=== PATIENT | female | born 1955 | race Caucasian/White ===

== ENCOUNTER 2022-05-25 12:54 | Emergency (ER) | payer MEDICARE, OTHER, SELFPAY ==
[2022-05-25 13:00] VITALS: BP 118/76; PULSE 82; RESP 18; TEMP 36.4; O2SAT 96
--- NOTE | 2022-05-25 13:06 | W.ED.GENADLT ---
HPI - General Adult General: Chief complaint: Nausea/Vomiting/Diarrhea Stated complaint: n/v Time Seen by Provider: 05/25/22 13:04 History of Present Illness: Patient is a 66-year-old female with no significant past medical who presents emergency room with 1 day of nausea vomiting and lower abdominal pain. Patient has been admitted since the onset of pain yesterday afternoon, patient has not been able to tolerate anything p.o. Patient has had multiple episodes of vomiting without associated diarrhea melena medic easier. Patient has no complaints or history of renal colic. Patient has a history of prior cholecystectomy does not know whether her appendix is still present. Patient denies any new vaginal discharge or heavy vaginal bleeding. Patient reports chills but denies any fever cough, runny nose sore throat chest pain or shortness breath. Onset:yesterday Duration:1 day Location:home Severity:moderate Associated symptoms: Reports vomiting; Deny chest pain, dyspnea, rash or palpitations Review of Systems Const: Denies: fever(s) or chills Eyes: Denies: change in vision ENMT: Denies: mouth pain Card: Denies: chest pain or palpitations Resp: Denies: dyspnea or non-productive cough GI: Reports: abdominal pain (+lower abd pain) and vomiting; Denies: diarrhea : Denies: dysuria Musc: Denies: extremity pain Skin/Breast: Denies: rash or new lesions Neuro: Denies: weakness in extremities Psych: Reports: other (Normal mood) Luis Armando/Lymph: Denies: easy bruising PFSH ED PFSH: Surgical History Hx of cholecystectomy Social History Smoking and tobacco status: never smoked Alcohol intake: never Substance/Drug Use: never Physical Exam Const: COMMON NORMALS: alert HENMT: COMMON NORMALS: atraumatic HEAD & SCALP: atraumatic MOUTH: moist mucous membranes not abnormal Eye: COMMON NORMALS: EOMs intact bilaterally and conjunctivae normal CONJUNCTIVA: Yes conjunctivae normal Neck/C-Spine: COMMON NORMALS: full ROM and supple Resp: COMMON NORMALS: normal respiratory effort and clear to auscultation bilaterally AUSCULTATION: clear to auscultation bilaterally Cardio: COMMON NORMALS: regular rate RATE: regular rate GI: COMMON NORMALS: Soft to palpation PALPATION: Yes Soft to palpation OTHER: +Moderate RLQ and LLQ focal TTP. NO guarding rebound, guarding, rigidity. No CVA tenderness to percussion. Neg Redd/Neg McBurney's point tenderness, no suprabupic tenderness to palpation. Extremity: COMMON NORMALS: full ROM Neuro: SENSORIUM/ORIENTATION: Yes alert MOTOR EXAM: No Abnormal motor strength present and Other motor observations present (no focal motor deficits) Psych: COMMON NORMALS: speech normal SPEECH: Yes normal speech MOOD & AFFECT: Yes euthymic mood Course Vital Signs: Vital signs: Vital Signs Temperature 97.6 F 05/25/22 13:00 Pulse Rate 75 05/25/22 14:49 Respiratory Rate 16 05/25/22 14:49 Blood Pressure 122/76 05/25/22 14:49 Pulse Oximetry 96 05/25/22 14:49 Oxygen Delivery Me thod 05/25/22 14:49 MDM - General Adult Medical Decision Making Patient is a 66-year-old female with no significant past medical who presents emergency room with 1 day of nausea vomiting and lower abdominal pain since yesterday. On physical exam, patient is moderate to palpation right lower quadrant. Patient is white count of 8.0. Patient is noted to be mildly hemoconcentrated 16.7. UA is negative for any acute finding. 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 I suspect that this is likely the patient's source of pain. Patient received IVF and pain medicine reports feeling significantly improved. Patient is able to tolerate p.o. Incidental findings of javier mesentery and its possible cancer implication discussed extensively with patient. Patient received a copy of the CT report with the documented findings. Patient is instructed to follow up urgently with specialists. I have given patient follow up with our case assistant to be seen by our outpatient by Gen Surgery for panniculitis and mesenteritis on the CT report and evaluation of javier mesentery. Patient aware of a call from our case assistant to schedule for appointment(s) and verbalizes understanding of the importance of following up. Rx tylenol PRN abd pain, maalox/pepcid PRN dyspepsia, and zofran PRN nausea/vomiting Disposition: Discharge. Patient counseled regarding diagnostic impression, treatment plan. Patient given ED strict return precautions to return for continuation, worsening, or development of new symptoms. Instructed to f/u w/ PCP regarding symptoms today. Patient verbalized understanding. Lab Data : 05/25/22 13:20 05/25/22 13:20 Radiology Impressions Abdomen/Pelvis CT 05/25/22 13:19 IMPRESSION: 1. Normal appendix in the RIGHT lower quadrant. No evidence of acute appendicitis. 2. No hydronephrosis in either kidney. No obstructing renal or ureteral calculi. 3. Small bladder cystocele. 4. Small esophageal hiatal hernia. 5. Javier mesentery in the midabdomen can be seen with sclerosing mesenteritis or mesenteric panniculitis. This has been associated with lymphoma and recommend 6 month follow-up contrast enhanced CT abdomen pelvis. 6. No visualized lymphadenopathy. 7. Prior cholecystectomy. Laboratory Results WBC 8.0 10^3/uL (4.0-10.0) 05/25/22 13:20 RBC 5.34 10^6/uL (4.1-5.3) H 05/25/22 13:20 Hgb 16.7 g/dL (11.5-15.3) H 05/25/22 13:20 Hct 48.6 % (37.0-47.0) H 05/25/22 13:20 MCV 91.0 fl (81-99) 05/25/22 13:20 MCH 31.3 pg (28.0-34.0) 05/25/22 13:20 MCHC 34.4 g/dL (30.0-36.0) 05/25/22 13:20 RDW 12.0 % (12.1-15.1) L 05/25/22 13:20 Plt Count 258 10^3/cmm (130-400) 05/25/22 13:20 MPV 9.8 fL (7.4-10.4) 05/25/22 13:20 Neut % (Auto) 50.4 % 05/25/22 13:20 Lymph % (Auto) 40.4 % 05/25/22 13:20 [place] % (Auto) 7.5 % 05/25/22 13:20 Eos % (Auto) 1.0 % 05/25/22 13:20 Baso % (Auto) 0.4 % 05/25/22 13:20 Neut # (Auto) 4.03 10^3/uL (1.8-7.7) 05/25/22 13:20 Lymph # (Auto) 3.2 10^3/uL (0.8-4.8) 05/25/22 13:20 [place] # (Auto) 0.6 10^3/uL (0.2-0.9) 05/25/22 13:20 Eos # (Auto) 0.1 10^3/uL (0.0-0.8) 05/25/22 13:20 Baso # (Auto) 0.0 10^3/uL (0.0-0.1) 05/25/22 13:20 Nucleated RBC % (auto) 0 % 05/25/22 13:20 Nucleated RBCs # 0.0 /100WBC 05/25/22 13:20 Sodium 138 mmol/L (136-145) 05/25/22 13:20 Potassium 3.7 mmol/L (3.5-5.1) 05/25/22 13:20 Chloride 97 mmol/L (98-107) L 05/25/22 13:20 Carbon Dioxide 29 mmol/L (22-29) 05/25/22 13:20 Anion Gap 15.7 (5-19) 05/25/22 13:20 BUN 9 mg/dL (8-23) 05/25/22 13:20 Creatinine 0.5 mg/dL (0.5-0.9) 05/25/22 13:20 GFR Calculation 123.1 mL/min (90-130) 05/25/22 13:20 Glucose 190 mg/dL (65-115) H 05/25/22 13:20 Calculated Osmolality 290 mOsm/kg (285-295) 05/25/22 13:20 Lactate 1.7 mmol/L (0.5-2.2) 05/25/22 13:20 Calcium 9.3 mg/dL (8.5-10.5) 05/25/22 13:20 Total Bilirubin 0.5 mg/dL (0.15-1.2) 05/25/22 13:20 AST 27 U/L (0-32) 05/25/22 13:20 ALT 30 U/L (0-33) 05/25/22 13:20 Alkaline Phosphatase 78 U/L (35-105) 05/25/22 13:20 Total Protein 7.9 g/dL (6.6-8.7) 05/25/22 13:20 Albumin 4.1 g/dL (3.5-5.2) 05/25/22 13:20 Globulin 3.8 g/dL (1.3-4.6) 05/25/22 13:20 Lipase 24 U/L (13-60) 05/25/22 13:20 Imaging Data Other Imaging: Radiologist's impression: [email or web address] [address] [place] [address] CT Scan Report Signed Patient: Olga Gonzalez Unit #: [id number] : 1955 Age/Sex: 66 / F ADM Date: 05/25/22 Loc: ER Room/Bed: Attending Dr: Ordering Provider/Ordering MD: Vivian Bah MD Date of Service: 05/25/22 Procedure(s): CT abdomen pelvis w con* [id number] Accession Number(s): [id number] Report Number: [id number] WS: [id number] CT ABDOMEN PELVIS TECHNIQUE: Contrast-enhanced CT of the abdomen and pelvis with coronal and sagittal reformatted images. CLINICAL INFORMATION: rlq abd pain COMPARISON: None. DLP: 847.[address] scans at [email or web address] use at least one of these dose optimization techniques: automated exposure control; mA and/or kV adjustment per patient size (includes targeted exams where dose is matched to clinical indication); or iterative reconstruction. FINDINGS: Diffuse fatty infiltration liver. Normal portal vein and splenic vein. Splenic granulomas. Prior cholecystectomy. Small esophageal hiatal hernia. Lung bases are well aerated. Slight bibasilar atelectasis. Small esophageal hiatal hernia. Normal caliber abdominal aorta. Celiac and SMA are patent. No hydronephrosis in either kidney. Tiny RIGHT renal cyst. No obstructing renal or ureteral calculi. Tiny cystocele. Normal sigmoid colon. Normal appendix in the RIGHT lower quadrant. No evidence of acute appendicitis. No high-grade small or large bowel obstruction. Tiny fat-containing umbilical hernia. Slight anterolisthesis L4 on L5. A few sigmoid diverticuli. No evidence of acute diverticulitis. Tiny amount of Javier mesentery in the central abdomen is nonspecific but can be seen with mesenteric panniculitis and sclerosing mesenteritis.. This has been associated with lymphoma recommend 6 month follow-up. CT/CT abdomen pelvis w con* [id number] IMPRESSION: ? 1.? Normal appendix in the RIGHT lower quadrant. No evidence of acute appendicitis. 2.? No hydronephrosis in either kidney. No obstructing renal or ureteral calculi. 3.? Small bladder cystocele. 4.? Small esophageal hiatal hernia. 5.? Javier mesentery in the midabdomen can be seen with sclerosing mesenteritis or mesenteric panniculitis. This has been associated with lymphoma and recommend 6 month follow-up contrast enhanced CT abdomen pelvis. 6.? No visualized lymphadenopathy. 7.? Prior cholecystectomy. ? Dictated By: Delio Jensen MD Signed By: Delio Jensen MD Signed Date/Time: 05/25/22 1510 DD/ 1456 Discharge Plan Discharge Patient Disposition: Home Clinical Impression: Abdominal pain, Nausea and vomiting Condition: Stable Prescriptions: New acetaminophen 500 mg tablet 500 mg PO Q6H PRN (Reason: pain) 5 Days Qty: 20 0RF Pepcid 20 mg tablet 20 mg PO BID PRN (Reason: abdominal pain) 10 Days Qty: 20 0RF ondansetron 4 mg tablet,disintegrating 4 mg PO TID PRN (Reason: nausea and vomiting) 4 Days Qty: 12 0RF Maalox Advanced 1,000-60 mg tablet,chewable 1 tab PO TID PRN (Reason: abdominal pain) 7 Days Qty: 21 0RF No Action ondansetron 8 mg tablet,disintegrating 8 mg PO Q8H Qty: 15 0RF famotidine 20 mg tablet 20 mg PO DAILY Qty: 20 0RF Discharge Orders: Discharge ED (Routine); Ordered 05/25/22 Ordered By: Vivian Bah Referrals: Milind Fernández [Primary Care Provider] - Discharge Diet: Advance as tolerated Discharge Activity: Increase activity as tolerated Patient Instructions: Abdominal Pain (ED) Activity Restrictions/Additional Instructions: Please come back if you have any worsening abdominal pain, fever or chills, nausea or vomiting, diarrhea, blood in the stool, inability hold down liquid or solids, or any new concerning complaints. Our case assistant will have you follow-up with our general surgeon in the next few days for evaluation of panniculitis and javier mesentery. You would be expected to have a phone call with our case assistant who will put you on the schedule. You can expect a call from us in the next 2-3 days. If you don't hear from us, call us back in the emergency room at [phone]. Here's a copy of your CT report: [facility] [place] [address] CT Scan Report Signed Patient: Olga Gonzalez Unit #: [id number] : 1955 Age/Sex: 66 / F ADM Date: 05/25/22 Loc: ER Room/Bed: Attending Dr: Ordering Provider/Ordering MD: Vivian Bah MD Date of Service: 05/25/22 Procedure(s): CT abdomen pelvis w con* [id number] Accession Number(s): [id number] Report Number: [id number] WS: [id number] CT ABDOMEN PELVIS TECHNIQUE: Contrast-enhanced CT of the abdomen and pelvis with coronal and sagittal reformatted images. CLINICAL INFORMATION: rlq abd pain COMPARISON: None. DLP: 847.[address] scans at [email or web address] use at least one of these dose optimization techniques: automated exposure control; mA and/or kV adjustment per patient size (includes targeted exams where dose is matched to clinical indication); or iterative reconstruction. FINDINGS: Diffuse fatty infiltration liver. Normal portal vein and splenic vein. Splenic granulomas. Prior cholecystectomy. Small esophageal hiatal hernia. Lung bases are well aerated. Slight bibasilar atelectasis. Small esophageal hiatal hernia. Normal caliber abdominal aorta. Celiac and SMA are patent. No hydronephrosis in either kidney. Tiny RIGHT renal cyst. No obstructing renal or ureteral calculi. Tiny cystocele. Normal sigmoid colon. Normal appendix in the RIGHT lower quadrant. No evidence of acute appendicitis. No high-grade small or large bowel obstruction. Tiny fat-containing umbilical hernia. Slight anterolisthesis L4 on L5. A few sigmoid diverticuli. No evidence of acute diverticulitis. Tiny amount of Javier mesentery in the central abdomen is nonspecific but can be seen with mesenteric panniculitis and sclerosing mesenteritis.. This has been associated with lymphoma recommend 6 month follow-up. CT/CT abdomen pelvis w con* [id number] IMPRESSION: ? 1.? Normal appendix in the RIGHT lower quadrant. No evidence of acute appendicitis. 2.? No hydronephrosis in either kidney. No obstructing renal or ureteral calculi. 3.? Small bladder cystocele. 4.? Small esophageal hiatal hernia. 5.? Javier mesentery in the midabdomen can be seen with sclerosing mesenteritis or mesenteric panniculitis. This has been associated with lymphoma and recommend 6 month follow-up contrast enhanced CT abdomen pelvis. 6.? No visualized lymphadenopathy. 7.? Prior cholecystectomy. ? Dictated By: Delio Jensen MD Signed By: Delio Jensen MD Signed Date/Time: 05/25/22 1510 DD/ 1456 Coding Level of Care Code ED Outpatient Physical Therapist for Chg Fwd Exam Comprehensive
--- NOTE | 2022-05-25 13:19 | CT_ITS ---
WS: [id number] CT ABDOMEN PELVIS TECHNIQUE: Contrast-enhanced CT of the abdomen and pelvis with coronal and sagittal reformatted image s. CLINICAL INFORMATION: rlq abd pain COMPARISON: None. DLP: 847.[address] scans at [facility] use at least one of these dose optimization techniques: automated e xposure control; mA and/or kV adjustment per patient size (includes targeted exams where dose is matc hed to clinical indication); or iterative reconstruction. FINDINGS: Diffuse fatty infiltration liver. Normal portal vein and splenic vein. Splenic granulomas. Prior chol ecystectomy. Small esophageal hiatal hernia. Lung bases are well aerated. Slight bibasilar atelectasi s. Small esophageal hiatal hernia. Normal caliber abdominal aorta. Celiac and SMA are patent. No hydrone phrosis in either kidney. Tiny RIGHT renal cyst. No obstructing renal or ureteral calculi. Tiny cysto brett. Normal sigmoid colon. Normal appendix in the RIGHT lower quadrant. No evidence of acute appendi citis. No high-grade small or large bowel obstruction. Tiny fat-containing umbilical hernia. Slight anterolisthesis L4 on L5. A few sigmoid diverticuli. No evidence of acute diverticulitis. Tiny amount of Elissa mesentery in the central abdomen is nonspecific but can be seen with mesenteric pann iculitis and sclerosing mesenteritis.. This has been associated with lymphoma recommend 6 month follo w-up. CT/CT abdomen pelvis w con* [id number] IMPRESSION: 1. Normal appendix in the RIGHT lower quadrant. No evidence of acute appendici tis. 2. No hydronephrosis in either kidney. No obstructing renal or ureteral calcul i. 3. Small bladder cystocele. 4. Small esophageal hiatal hernia. 5. Elissa mesentery in the midabdomen can be seen with sclerosing mesenteriti s or mesenteric panniculitis. This has been associated with lymphoma and recomm end 6 month follow-up contrast enhanced CT abdomen pelvis. 6. No visualized lymphadenopathy. 7. Prior cholecystectomy.
[2022-05-25] MEDS: ondansetron 2 mg/ML SDV 2 mL 4 MG IVP (13:33)
[2022-05-25 13:34] LABS: Basophils % 0.4 %; Eosinophils # 0.1 10^3/uL (0.0-0.8); Hematocrit 48.6 % (37.0-47.0); Hemoglobin 16.7 g/dL (11.5-15.3); Lymphocytes # 3.2 10^3/uL (0.8-4.8); Lymphocytes % 40.4 %; Mean Corpuscular HGB Conc 34.4 g/dL (30.0-36.0); Mean Corpuscular Hemoglobin 31.3 pg (28.0-34.0); Mean Platelet Volume 9.8 fL (7.4-10.4); Monocytes # 0.6 10^3/uL (0.2-0.9); Monocytes % 7.5 %; Neutrophils # 4.03 10^3/uL (1.8-7.7); Neutrophils % 50.4 %; Nucleated Red Blood Cells % 0 %; Platelet Count 258 10^3/cmm (130-400); Red Blood Count 5.34 10^6/uL (4.1-5.3)
[2022-05-25] MEDS: sodium chloride 0.9% 1,000 ML 999 ML IV ×2 (13:34→14:47)
[2022-05-25 13:38] VITALS: BP 126/76; PULSE 75; RESP 15; O2SAT 93
[2022-05-25 13:49] LABS: Lactate (Lactic Acid level) 1.7 mmol/L (0.5-2.2)
[2022-05-25 13:54] LABS: Alanine Aminotransferase 30 U/L (0-33); Albumin Level 4.1 g/dL (3.5-5.2); Alkaline Phosphatase 78 U/L (35-105); Anion Gap 15.7 (5-19); Aspartate Amino Transferase 27 U/L (0-32); Blood Urea Nitrogen 9 mg/dL (8-23); Calcium 9.3 mg/dL (8.5-10.5); Carbon Dioxide 29 mmol/L (22-29); Chloride 97 mmol/L (98-107); Globulin 3.8 g/dL (1.3-4.6); Glomerular Filtration Rate 123.1 mL/min (90-130); Glucose 190 mg/dL (65-115); Lipase 24 U/L (13-60); Osmolality Calculated 290 mOsm/kg (285-295); Potassium 3.7 mmol/L (3.5-5.1); Sodium 138 mmol/L (136-145); Total Bilirubin 0.5 mg/dL (0.15-1.2); Total Protein 7.9 g/dL (6.6-8.7)
[2022-05-25] MEDS: iohexol 350 mg/mL 100 mL Btl IV (14:20)
[2022-05-25 14:49] VITALS: BP 122/76; PULSE 75; RESP 16; O2SAT 96
[2022-05-25 16:41] VITALS: BP 126/89; PULSE 82; RESP 16; TEMP 36.5; O2SAT 97
[2022-05-25 16:56] LABS: Add Urine Culture? Yes; Add Urine Microscopic? YES; Bacteria Urine TRACE /hpf; Bilirubin Urine Neg (Negative); Blood Urine Neg (Negative); Glucose Urine UA Norm (Normal); Ketones Urine 2+ (Negative); Leukocyte Esterase Urine 2+ (Negative); Nitrate Urine Negative (Negative); Protein Urine Neg (Negative); RBC Urine 0-4 /hpf (0-2); Specific Gravity, Urine 1.005 (1.005-1.030); Urine Appearance Clear (CLEAR); Urine Color Yellow (Yellow); Urobilinogen Urine Norm (Negative); pH Urine 7 (5-7)
[2022-05-25 17:41] LABS: Adenovirus Not Detected (NOT DETECT); Chlamydia Pneumoniae Not Detected (NOT DETECT); Coronavirus 229E,HKU1,NL63,OC4 Not Detected (NOT DETECT); Human Metapneumovirus Not Detected (NOT DETECT); Human Rhinovirus/Enterovirus Not Detected (NOT DETECT); Influenza A Not Detected (NOT DETECT); Influenza A H1 Not Detected (NOT DETECT); Influenza A H1-2009 Not Detected (NOT DETECT); Influenza A H3 Not Detected (NOT DETECT); Influenza B Not Detected (NOT DETECT); Mycoplasma Pneumoniae Not Detected (NOT DETECT); Parainfluenza Virus Type 1 Not Detected (NOT DETECT); Parainfluenza Virus Type 2 Not Detected (NOT DETECT); Parainfluenza Virus Type 3 Not Detected (NOT DETECT); Parainfluenza Virus Type 4 Not Detected (NOT DETECT); Respiratory Syncytial Virus A Not Detected (NOT DETECT); Respiratory Syncytial Virus B Not Detected (NOT DETECT); SARS-COV-2 Not Detected (NOT DETECT)
--- NOTE | 2022-05-26 12:01 | DCPLANNER ---
Addendum entered by Adamaris Gonzales 05/28/22 14:39: Patients appointment was cancelled Original Note: manager change had message to schedule a follow up appointment for patient with general surgery. manager change sent patients information to the front office staff at general surgery. Patients information will be printed and reviewed. Clinic will call patient with appointment information.
== END 2022-05-25 16:43 | disposition home or self-care (01) ==
PROVIDERS: Emergency Provider Emergency Medicine; PCP Student in an Organized Health Care Education/Training Program
DX: K65.4 Sclerosing mesenteritis (principal); R11.2 Nausea with vomiting, unspecified; R10.9 Unspecified abdominal pain
CPT/HCPCS: 74177; 80053; 81001; 83605; 83690; 85025; 87086; 87400; 87635; 96361; 96374; 99285; J2405; J7030; Q9967